=== PATIENT | female | born 1950 ===

== ENCOUNTER 2021-02-06 09:22 | Emergency (ER) | payer OTHER, MEDICARE ==
[~2021-02-06] VITALS: Ht 160 cm; Wt 86.2 kg
[~2021-02-06 09:22] MED LIST: HYDR1TAB94 PO; Synthroid50 MCG; Zofran8 MG PO
[2021-02-06] MEDS ORDERED: LEVSOD100 PO (09:51)
[2021-02-06] MEDS ORDERED: ALBU90OI INH (09:52)
== END 2021-02-06 10:59 | disposition home or self-care (01) ==
LOC: ER 09:22
DX: S20.211A Contusion of right front wall of thorax, initial encounter (principal); V49.40XA Driver injured in collision with unspecified motor vehicles in traffic accident, initial encounter; Y92.410 Unspecified street and highway as the place of occurrence of the external cause
CPT/HCPCS: 71101; 99284-25